=== PATIENT | male | born 1950 | race Caucasian/White ===

== ENCOUNTER 2025-04-28 08:25 | Observation (INO) ==
--- NOTE | 2025-04-28 08:56 | Emergency Department Note ---
Impression & Plan Diverticulitis of intestine with perforation, Abdominal pain ED Provider Note Provider: Prem Peraza MD CHIEF COMPLAINT: Mid abdominal pain HISTORY OF PRESENT ILLNESS: Patient is a 74-year-old gentleman history of atrial fibrillation on Coumadin, CAD without stents, hypertension presenting here today reporting over the last 2 days or so has been stressing some mid abdominal discomfort. Lives in [place] and here visiting family. Arrived yesterday. States symptoms started Friday after completing a normal hike for him that went without issue. Had a convenience store sandwich in the posterior mid abdominal discomfort. No nausea vomiting or diarrhea. Actually ports he has not had a bowel in approximately 2 days at this time. No fevers. No ration of the pain to the back. States if he takes deep breath or moves too much he gets a little worsening of the pain around his bellybutton but does not feel short of breath. States compliance with home medications. No trauma reported. No urinary issues reported. No history of abdominal surgeries. Does state he has small umbilical hernia for the last 85 years that soft and reducible. Does have a history of diverticulosis in the past. Did take a Vicodin he had last night to help with sleep that worked okay. PAST MEDICAL HISTORY: As noted above MEDICATIONS: Reviewed home medications with him at bedside, includes Coumadin & flecainide SOCIAL HISTORY: Lives in [place] PHYSICAL EXAM: GENERAL: alert and oriented in no acute distress on stretcher Head: normocephalic and atraumatic EYES: No injection, discharge or icterus. NECK: Trachea midline. ENT: Mucous membranes pink and moist. LUNGS: Airway patent. No retractions. Breath sounds clear HEART: Regular rate and rhythm. No chest wall tenderness ABDOMEN: Soft some mid periumbilical tenderness. There is a small just superior 1 cm umbilical hernia that is soft and easily reducible and nontender present. No significant flank or lower abdominal tenderness on exam. No guarding. SKIN: Acyanotic, warm, dry, with a few scattered bruises on the right upper arm noted. EXTREMITIES: Without swelling, tenderness or deformity NEUROLOGICAL: No focal deficits. No aphasia. No facial droop or slurred speech. Ambulatory. EK bpm sinus bradycardia with incomplete right bundle branch block. No acute ST segment elevation or depression with a QTc of 418. CONTINUOUS CARDIAC MONITORING: was ordered and showed a heart rate of 40s to 50s bpm in sinus bradycardia PDMP was checked without noted issue. Patient's laboratory studies and imaging reviewed. Differential includes Appendicitis, infections, diverticulitis, UTI, obstruction, mesenteric ischemia, aortic pathology, inflammatory bowel disease, renal colic, PUD, pancreatitis, biliary pathology, hernia, volvulus, constipation, as well as other pathologies. IMPRESSION/MEDICAL DECISION MAKING: Patient well-appearing in no distress. Some mid abdominal discomfort and tenderness but easily reproducible and soft hernia and I doubt this is the etiology of his symptoms. Basic blood work obtained including INR given his use of blood thinners. Doubt PE with this. No trauma history reported. Symptoms started before his travel. No fevers reported. No significant abdominal surgical history reported. Will obtain CT CT scan to look for further intra- abdominal pathology. Blood work here without significant anemia or thrombocytopenia. White blood cell count of 10.2 within normal limits. No significant acute electrolyte abnormalities creatinine 1.4. No transaminitis fairly lipase not hepatitis or pancreatitis. Troponin normal at 16. CT scan per radiology report shows acute sigmoid diverticulitis with contained microperforation with an air-fluid level in the sigmoid colon small developing abscess phlegmon that is not drainable. No evidence of bowel obstruction per report with an indeterminant left lower rectus sheath 7.9 cm structure. They question malformation versus hemorrhage less likely the patient is not having any significant pain in this region. Question of acute pancreatitis per imaging but lipase is normal is not having severe nausea vomiting or back pain. Seems less likely. Did reach out to general surgery to discuss his findings. Again lower suspicion for active extravasation or bleeding his hemoglobin is 14. Patient is anticoagulated but not in A-fib at this time. Discussed with general surgery they have concerns given his anticoagulated status and possible active extravasation and recommended transfer. They agreed with IV antibiotics for the diverticulitis. Discussed with the patient. He is not having significant flank or back pain. Patient with some medical background and after considering it states he did not wish to be transferred. Acknowledged that we do not have the resources here to treat any bleeding but felt that this was incidental. Do not highly disagree that likely this will not be a problem but explained to them concerns that if things were to worsen we have limited resources here to deal with it. Updated the surgery team will follow and reach out to the hospitalist team as the patient was agreeable to stay here for IV antibiotics. DIAGNOSIS: Perforated diverticulitis, mid abdominal pain DISPOSITION: Hospitalist will evaluate Patient was agreeable with this plan. Past Med/Surg History Problem List (Updated 04/28/25 @ 12:54 by Prem Peraza M.D.) Abdominal pain (Acute) Diverticulitis of intestine with perforation (Acute) Social History Smoking Status: Never smoker Preferred Language: Martiniquais Feels Safe at Home: Yes Allergies Allergies Allergy/AdvReac Type Severity Reaction Status Date / Time No Known Allergies Allergy Unverified 04/28/25 09:52 Home Meds Home Medications Medication Instructions Recorded Confirmed aspirin 81 mg tablet,delayed 81 mg PO DAILY 04/28/25 04/28/25 release famotidine 20 mg tablet 20 mg PO DAILY PRN reflux 04/28/25 04/28/25 flecainide 50 mg tablet 50 mg PO BID 04/28/25 04/28/25 ibuprofen-diphenhydramine citrate 2 cap PO HS PRN Sleep/Pain 04/28/25 04/28/25 200 mg-38 mg tablet (Advil PM) lisinopril 5 mg tablet 5 mg PO DAILY 04/28/25 04/28/25 nitroglycerin 0.4 mg sublingual 0.4 mg sublingual DIRECTED PRN 04/28/25 04/28/25 tablet Chest Pain psyllium husk 3.4 gram/5.4 gram 1 tbsp PO DAILY 04/28/25 04/28/25 oral powder (Metamucil) rosuvastatin 40 mg tablet 40 mg PO HS 04/28/25 04/28/25 warfarin 5 mg tablet See Rx Instructions .Route .COMPLEX 04/28/25 04/28/25 Results & Data (ED) Vital Signs Vital Signs - 24 hr 04/28/25 08:27 04/28/25 08:27 04/28/25 08:53 Temperature 36.6 C Temperature Source Temporal Artery Scan Pulse Rate 63 Pulse Rate [Apical] Respiratory Rate 18 18 Respiratory Effort / Characteristics Respiratory Depth Blood Pressure 97/67 L Blood Pressure [Right Arm] Blood Pressure Mean 77 Blood Pressure Mean [Right Arm] Blood Pressure Position [Right Arm] Pulse Oximetry 95 96 Oxygen Delivery Method Room Air Sepsis Recent Fever Within 48 Hours No Sepsis New/Unexplained Change in Mental Status N/A Sepsis Action Taken by Nursing No Action Required 04/28/25 08:56 04/28/25 10:00 04/28/25 11:00 Temperature Temperature Source Pulse Rate 54 L Pulse Rate [Apical] 43 L 48 L Respiratory Rate 19 16 Respiratory Effort / Characteristics Non-Labored Spontaneous Non-Labored Spontaneous Respiratory Depth Normal Normal Blood Pressure Blood Pressure [Right Arm] 114/73 130/68 Blood Pressure Mean Blood Pressure Mean [Right Arm] 86 88 Blood Pressure Position [Right Arm] Semi-fowlers Semi-fowlers Pulse Oximetry 96 99 Oxygen Delivery Method Room Air Room Air Sepsis Recent Fever Within 48 Hours Sepsis New/Unexplained Change in Mental Status Sepsis Action Taken by Nursing 04/28/25 12:54 04/28/25 13:00 Temperature Temperature Source Pulse Rate 57 L Pulse Rate [Apical] 56 L Respiratory Rate 16 Respiratory Effort / Characteristics Non-Labored Spontaneous Respiratory Depth Normal Blood Pressure Blood Pressure [Right Arm] 127/81 Blood Pressure Mean Blood Pressure Mean [Right Arm] 96 Blood Pressure Position [Right Arm] Semi-fowlers Pulse Oximetry 97 Oxygen Delivery Method Room Air Sepsis Recent Fever Within 48 Hours Sepsis New/Unexplained Change in Mental Status Sepsis Action Taken by Nursing Laboratory Data 04/28/25 08:50 04/28/25 08:50 Lab Results 04/28/25 04/28/25 04/28/25 Range/Units 08:50 08:57 11:16 WBC 10.22 (4.8-10.8) K/ul RBC 4.44 L (4.70-6.10) M/uL Hgb 14.1 (14.0-18.0) g/dl POC Hgb 13.9 L (14.0-18.0) g/dl Hct 40.7 L (42.0-52.0) % POC Hct 41 L (42-52) % MCV 91.7 (80.0-100.0) fL MCH 31.8 (25.0-34.0) pg MCHC 34.6 (32.0-36.0) g/dL RDW Std Deviation 44.7 (36.4-46.3) fL RDW Coeff of Shayla 13.3 (11.5-14.5) % Plt Count 143 (130-400) K/uL MPV 11.0 (9.4-12.4) fL Immature Gran % (Auto) 0.5 % Neut % (Auto) 81.3 % Lymph % (Auto) 9.7 % Boyle % (Auto) 7.7 % Eos % (Auto) 0.6 % Baso % (Auto) 0.2 % Neut # (Auto) 8.31 H (1.40-6.50) K/uL Lymph # (Auto) 0.99 L (1.20-3.40) K/uL Boyle # (Auto) 0.79 H (0.11-0.59) K/uL Eos # (Auto) 0.06 (0.00-0.50) K/uL Baso # (Auto) 0.02 (0.00-0.20) K/uL Immature Gran # (Auto) 0.05 (0.01-0.20) K/uL PT 32.7 H (9.0-12.0) Seconds INR 3.4 H (0.9-1.1) POC Sodium 137 (135-144) mmol/L Sodium 135 L (136-145) mmol/L POC Potassium 3.8 (3.3-5.0) mmol/L Potassium 3.8 (3.5-5.1) mmol/L POC Chloride 103 (101-112) mmol/L Chloride 105 (98-107) mmol/L Carbon Dioxide 24 (21-32) mmol/L POC Total CO2 22 L (24-31) mmol/L Anion Gap 6 (3-11) POC Anion Gap 17.0 (16-25) mmol/L POC BUN 20 H (7-18) mg/dl BUN 22 (6-23) mg/dl Creatinine 1.42 H (0.6-1.4) mg/dl POC Creatinine 1.5 H (0.6-1.3) mg/dl Est Cr Clr Drug Dosing 44.3 ml/min eGFR 51.21 BUN/Creatinine Ratio 15.5 (10-20) Glucose 110 H (70-99(Fasting)) mg/dl POC Glucose (other) 106 H (70-99) mg/dl Calcium 9.2 (8.6-10.3) mg/dl POC Ioniz Calcium Alicia 1.25 (1.12-1.32) mmol/l Total Bilirubin 3.8 H (0.2-1.0) mg/dl AST 25 (13-39) U/L ALT 26 (7-52) U/L Alkaline Phosphatase 59 (34-104) U/L Troponin I High Sens 16.3 (0-20) pg/ml Total Protein 6.4 (6.0-8.3) gm/dl Albumin 3.5 (3.4-5.0) gm/dl Globulin 2.9 (2.5-4.0) gm/dl Albumin/Globulin Ratio 1.2 (0.9-2) Lipase 20 (11-82) U/L Urine Color Yellow Urine Appearance Clear (Clear) Urine pH 5.5 (4.5-7.5) Ur Specific [place] > 1.045 H (1.000-1.030) Urine Protein 1+ H (Negative) Urine Glucose (UA) Negative (Negative) Urine Ketones Negative (Negative) Urine Blood 1+ H (Negative) Urine Nitrite Negative (Negative) Urine Bilirubin Negative (Negative) Urine Urobilinogen Negative (Negative) Ur Leukocyte Esterase Negative (Negative) Urine WBC (Auto) 0-5 (0-5) /hpf Urine RBC (Auto) 6-10 H (0-2) /hpf U Hyaline Cast (Auto) 0-2 (0-2) /lpf U Epithel Cells (Auto) 0-2 (0-2) /hpf Urine Bacteria (Auto) None Seen (None Seen) Urine Comment Administered Medications Discontinued Medications Piperacillin Sod/Tazobactam Sod (Zosyn) 4.5 gm in 100 mls @ 200 mls/hr IV NOW ONE; Protocol Stop: 04/28/25 11:10 Last Infusion: 04/28/25 12:06 Dose: Infused Documented By: Admin: 04/28/25 11:16 Dose: 200 mls/hr Documented By: MMF Ioversol (Optiray 320 100ml) 93 ml IV ONCE ONE Stop: 04/28/25 09:15 Last Admin: 04/28/25 09:14 Dose: 93 ml Documented By: [facility] Imaging Data Radiologist's Impression: Abdomen/Pelvis CT 04/28/25 08:[address] WITH IV CONTRAST CT DOSE: 1106.44 mGy.cm HISTORY: Acute mid abdominal pain for 2 days mid abd pain TECHNIQUE: Multiaxial CT images of the abdomen and pelvis were performed following the IV administration of 93 cc of Optiray, A dose lowering technique was utilized adhering to the principles of ALARA. COMPARISON STUDY: None. FINDINGS: Cardiomegaly with extensive coronary artery calcifications. Mild bibasilar atelectasis. Unremarkable spleen, and adrenal glands. Cholelithiasis without CT evidence of acute cholecystitis. Mild edema noted adjacent to the uncinate process pancreas, likely secondary to the mesenteric inflammation. Patent portal vein. No hydronephrosis. 4.6 and meter right renal cyst. Prostatomegaly. Decompressed urinary bladder with mild wall thickening. Atherosclerosis of the aorta. No lymphadenopathy. Small hiatal hernia. No small bowel obstruction. Trace pelvic ascites. Moderate rectal fecal retention. Extensive diverticulosis of the sigmoid. Acute proximal sigmoid diverticulitis. Air and fluid within the adjacent mesentery/upper sigmoid mesocolon is noted with a 2.6 and a focus on image 23 series 3. There is adjacent jejunal wall thickening which appears reactive. No drainable fluid collection. Normal appendix. There is a linear metallic density structure present within the cecum measuring approximately 2 cm in length on image 217 series 3. Small fat filled umbilical hernia with opening of approximately 1.8 cm. Mixed density extraperitoneal structure posterior to the left lower rectus sheath is noted on image 22 series 3 measuring 4.4 x 7.9 x 7.6 cm. This contains hyperdense central foci. No acute fracture. Grade 1 anterolisthesis L4 on L5, likely secondary to chronic facet arthrosis. IMPRESSION: 1. Acute sigmoid diverticulitis which contained microperforation. Air and fluid is noted within the sigmoid mesocolon with phlegmon/small developing abscess. No drainable collections are present at this time. 2. No bowel obstruction. 3. Indeterminate lobular extraperitoneal 7.9 cm structure/lesion posterior to the left lower rectus sheath demonstrates several foci of mixed attenuation which may represent soft tissue components, and/or active extravasation. Differential considerations include a complex venolymphatic malformation among other etiologies with a primary hemorrhage considered less likely. Follow-up recommended. 4. Equivocal findings of mild acute pancreatitis. Correlate with serum lipase. 5. 2.2 cm linear metallic density structure within the cecum suggestive of an ingested foreign body. ACT 112: Negative or not required by law. The above report was generated using voice recognition software. It may contain grammatical, syntax or spelling errors. Electronically signed by: Florencio Figueredo M.D. 04/28/2025 10:12 AM Discharge Plan Visit Data Chief Complaint: Abdominal Pain Stated Complaint: ABD PAIN AROUND [facility] ED Provider: Prem Peraza Discharge Problem: Diverticulitis of intestine with perforation, Abdominal pain Patient Disposition: Being Evaluated by Hospitalist Condition: Fair Forms Stand Alone Forms: My [facility] Prescriptions Prescriptions: No Action aspirin 81 mg Tablet,Delayed Release (Dr/Ec) 81 mg PO DAILY famotidine 20 mg Tablet 20 mg PO DAILY PRN (Reason: reflux) warfarin 5 mg tablet See Rx Instructions .ROUTE .COMPLEX Rx Instructions: Take 2.5mg on Mon/Fri and 5mg all other days flecainide 50 mg tablet 50 mg PO BID nitroglycerin 0.4 mg tablet, sublingual 0.4 mg sublingual DIRECTED PRN (Reason: Chest Pain) Rx Instructions: PLACE 1 TABLET UNDER TONGUE NEEDED FOR CHEST PAIN; MAY REPEAT EVERY 5 MINUTES FOR A TOTAL OF 3 DOSES IF NOT RESOLVED; CALL 911 lisinopril 5 mg tablet 5 mg PO DAILY rosuvastatin 40 mg tablet 40 mg PO HS Advil PM 200-38 mg Tablet 2 cap PO HS PRN (Reason: Sleep/Pain) Metamucil 3.4 gram/5.4 gram Powder 1 tbsp PO DAILY Rx Instructions: mix into at least 8 oz of water or juice before administering Referrals Referrals: PCP,NO [Primary Care Provider] - Discharge Problem: Diverticulitis of intestine with perforation Qualifiers: Diverticulitis site: large intestine Diverticulitis bleeding: without bleeding Qualified Code(s): K57.20 - Diverticulitis of large intestine with perforation and abscess without bleeding Abdominal pain Qualifiers: Abdominal location: periumbilical Qualified Code(s): R10.33 - Periumbilical pain
[2025-04-28 09:05] LABS: Basophils # (auto) 0.02 K/uL (0.00-0.20); Basophils % (auto) 0.2 %; Eosinophils # (auto) 0.06 K/uL (0.00-0.50); Eosinophils % (auto) 0.6 %; Hematocrit (blood only) 40.7 % (42.0-52.0); Hemoglobin 14.1 g/dl (14.0-18.0); Immature Granulocytes # (auto) 0.05 K/uL (0.01-0.20); Immature Granulocytes % (auto) 0.5 %; Lymphocytes # (auto) 0.99 K/uL (1.20-3.40); Lymphocytes % (auto) 9.7 %; Mean Corpuscular Hemoglobin 31.8 pg (25.0-34.0); Mean Corpuscular Hgb Conc 34.6 g/dL (32.0-36.0); Mean Corpuscular Volume 91.7 fL (80.0-100.0); Monocytes # (auto) 0.79 K/uL (0.11-0.59); Monocytes % (auto) 7.7 %; Neutrophils # (auto) 8.31 K/uL (1.40-6.50); Neutrophils % (auto) 81.3 %; Platelet Count 143 K/uL (130-400); RDW Coefficient of Variation 13.3 % (11.5-14.5); RDW Standard Deviation 44.7 fL (36.4-46.3); Red Blood Count 4.44 M/uL (4.70-6.10); White Blood Count 10.22 K/ul (4.8-10.8)
[2025-04-28] MEDS: OPTIRAY 320 100ml IV ONE (09:14)
[2025-04-28 09:23] LABS: Albumin Globulin Ratio 1.2 (0.9-2); BUN Creatinine Ratio 15.5 (10-20); Bilirubin,Total 3.8 mg/dl (0.2-1.0); Calcium 9.2 mg/dl (8.6-10.3); Creatinine Clr Calc Pharmacy 44.3 ml/min; Globulin 2.9 gm/dl (2.5-4.0); Potassium 3.8 mmol/L (3.5-5.1); Total Protein 6.4 gm/dl (6.0-8.3)
[2025-04-28 09:28] LABS: iSTAT Creatinine 1.5 mg/dl (0.6-1.3); iSTAT Hemoglobin 13.9 g/dl (14.0-18.0); iSTAT Ionized Calcium 1.25 mmol/l (1.12-1.32); iSTAT Potassium 3.8 mmol/L (3.3-5.0)
[2025-04-28 09:29] LABS: Troponin I High Sensitivity 16.3 pg/ml (0-20)
[2025-04-28 09:37] LABS: INR 3.4 (0.9-1.1); Prothrombin Time 32.7 Seconds (9.0-12.0)
--- NOTE | 2025-04-28 10:14 | CT Scan Report ---
ABDOMEN AND PELVIS CT WITH IV CONTRAST CT DOSE: 1106.44 mGy.cm HISTORY: Acute mid abdominal pain for 2 days mid abd pain TECHNIQUE: Multiaxial CT images of the abdomen and pelvis were performed following the IV administrat ion of 93 cc of Optiray, A dose lowering technique was utilized adhering to the principles of ALARA. COMPARISON STUDY: None. FINDINGS: Cardiomegaly with extensive coronary artery calcifications. Mild bibasilar atelectasis. Unr emarkable spleen, and adrenal glands. Cholelithiasis without CT evidence of acute cholecystitis. Mild edema noted adjacent to the uncinate process pancreas, likely secondary to the mesenteric inflammati on. Patent portal vein. No hydronephrosis. 4.6 and meter right renal cyst. Prostatomegaly. Decompressed urinary bladder with mild wall thickening. Atherosclerosis of the aorta. No lymphadenopathy. Small hiatal hernia. No small bowel obstruction. Trace pelvic ascites. Moderate rectal fecal retentio n. Extensive diverticulosis of the sigmoid. Acute proximal sigmoid diverticulitis. Air and fluid with in the adjacent mesentery/upper sigmoid mesocolon is noted with a 2.6 and a focus on image 23 series 3. There is adjacent jejunal wall thickening which appears reactive. No drainable fluid collection. N ormal appendix. There is a linear metallic density structure present within the cecum measuring appro ximately 2 cm in length on image 217 series 3. Small fat filled umbilical hernia with opening of appr oximately 1.8 cm. Mixed density extraperitoneal structure posterior to the left lower rectus sheath is noted on image 2 2 series 3 measuring 4.4 x 7.9 x 7.6 cm. This contains hyperdense central foci. No acute fracture. Gr steve 1 anterolisthesis L4 on L5, likely secondary to chronic facet arthrosis. IMPRESSION: 1. Acute sigmoid diverticulitis which contained microperforation. Air and fluid is noted within the s igmoid mesocolon with phlegmon/small developing abscess. No drainable collections are present at this time. 2. No bowel obstruction. 3. Indeterminate lobular extraperitoneal 7.9 cm structure/lesion posterior to the left lower rectus s hafsa demonstrates several foci of mixed attenuation which may represent soft tissue components, and/ or active extravasation. Differential considerations include a complex venolymphatic malformation ap ng other etiologies with a primary hemorrhage considered less likely. Follow-up recommended. 4. Equivocal findings of mild acute pancreatitis. Correlate with serum lipase. 5. 2.2 cm linear metallic density structure within the cecum suggestive of an ingested foreign body. ACT 112: Negative or not required by law. The above report was generated using voice recognition software. It may contain grammatical, syntax o r spelling errors. Electronically signed by: Florencio Figueredo M.D. 04/28/2025 10:12 AM
[2025-04-28] MEDS: PIPERACILLIN/TAZOBACTAM 4.5 GM/100 ML BAG IV ONE (11:16)
[2025-04-28 11:29] LABS: Appearance Urine Clear (Clear); Bacteria Urine Automated None Seen (None Seen); Bilirubin Urine Negative (Negative); Blood Urine 1+ (Negative); Cast Urine Automated 0-2 /lpf (0-2); Color Urine Yellow; Epithelial Cell Urine Auto 0-2 /hpf (0-2); Glucose Urine UA Negative (Negative); Ketones Urine Negative (Negative); Leukocyte Esterase Urine Negative (Negative); Nitrite Urine Negative (Negative); Protein Urine 1+ (Negative); Specific Gravity Urine > 1.045 (1.000-1.030); Urobilinogen Urine Negative (Negative); WBC Urine Automated 0-5 /hpf (0-5); pH Urine 5.5 (4.5-7.5)
--- NOTE | 2025-04-28 13:03 | History & Physical Report ---
Date of Service April 28, 2025 Assessment & Plan (1) Diverticulitis of intestine with perforation: (2) Atrial fibrillation: (3) Hypertension: (4) Hyperlipidemia: (5) GERD (gastroesophageal reflux disease): Plan 74 year old male with PMH significant for A fib on warfarin, hypertension, hyperlipidemia, and GERD who presented to the ED on 04/28/2025 with abdominal pain who is admitted for diverticulitis with microperforation. Diverticulitis with microperforation Patient presented with periumbilical abdominal pain x2 days CT abdomen revealed acute sigmoid diverticulitis with microperforation; air and fluid noted within sigmoid mesocolon with plegmon/small developing abscess that is not drainable; no bowel obstruction No leukocytosis, afebrile, vitals stable - no concern for sepsis at this time Received IV Zosyn in the ED Continue Zosyn q6hr NPO MIVF Pain control with IV tylenol and dilaudid PRN Surgery consulted: appreciate recs Abnormal CT findings -Indeterminate lobular extraperitoneal 7.9 cm structure/lesion posterior to the left lower rectus sheath demonstrates several foci of mixed attenuation which may represent soft tissue components, and/or active extravasation. Differential considerations include a complex venolymphatic malformation among other etiologies with a primary hemorrhage considered less likely. Follow-up recommended. --Surgery recommended transfer to tertiary center but patient refused; patient will follow up on this outpatient when he returns home to [place] -2.2 cm linear metallic density structure within the cecum suggestive of an ingested foreign body. --Patient believes he has metal clips from previous colonoscopies XIMENA Baseline creat 1.28-1.30 per patient Creat 1.4 here Continue IVF Avoid nephrotoxic meds Recheck BMP in am A fib Continue flecainide Baseline INR in high 2s per patient Hold warfarin given INR 3.4 and per surgery Recheck INR in am Hypertension Continue lisinopril Hyperlipidemia Continue rosuvastatin GERD Continue famotidine PRN DVT Prophylaxis: SCDs; holding warfarin due to supratherapeutic INR and possible procedure Code Status: FULL CODE - As per discussion at bedside with the patient. PCP: Francisco Kapadia of [place] Disposition: admit to [facility] tele Patient seen in collaboration with Dr Avila. Please see addendum. I spent a total of 75 minutes coordinating, documenting and providing care for this patient excluding time spent in the performance of separately billed services or time spent by another provider/QHP. Admission and Anticipated Discharge Date Admission Date: 04/28/2025 History of Present Illness Chief Complaint: abdominal pain Primary Care Provider: Francisco Kapadia ([place]) 74 year old male with PMH significant for A fib on warfarin, hypertension, hyperlipidemia, and GERD who presented to the ED on 04/28/2025 with abdominal pain. Patient reports he started with periumbilical abdominal pain two days ago. He states the pain is constant and aggravated by movement. He also notes two days of not having a bowel movement but he was able to move his bowels this morning. He denies associated nausea and vomiting. Notes that he has a history of diverticulitis. He took famotidine, ambien, and vicodin last night without any relief of his pain, which prompted him to seek evaluation this morning. Rates current pain 2-3/10. Denies chest pain, SOB, dysuria, weakness. He lives in [place] and is here visiting his daughter and granddaughter. He has a flight scheduled to return to [place] on Friday. Allergies Allergy/AdvReac Type Severity Reaction Status Date / Time No Known Allergies Allergy Unverified 04/28/25 09:52 Home Medications Medication Instructions Recorded Confirmed Type aspirin 81 mg tablet,delayed 81 mg PO DAILY 04/28/25 04/28/25 History release famotidine 20 mg tablet 20 mg PO DAILY PRN reflux 04/28/25 04/28/25 History flecainide 50 mg tablet 50 mg PO BID 04/28/25 04/28/25 History ibuprofen-diphenhydramine citrate 2 cap PO HS PRN Sleep/Pain 04/28/25 04/28/25 History 200 mg-38 mg tablet (Advil PM) lisinopril 5 mg tablet 5 mg PO DAILY 04/28/25 04/28/25 History nitroglycerin 0.4 mg sublingual 0.4 mg sublingual DIRECTED PRN 04/28/25 04/28/25 History tablet Chest Pain psyllium husk 3.4 gram/5.4 gram 1 tbsp PO DAILY 04/28/25 04/28/25 History oral powder (Metamucil) rosuvastatin 40 mg tablet 40 mg PO HS 04/28/25 04/28/25 History warfarin 5 mg tablet See Rx Instructions .Route .COMPLEX 04/28/25 04/28/25 History Past Med/Surg History Problem List (Updated 04/28/25 @ 15:39 by ELSA Castro) Abdominal pain (Acute) Diverticulitis of intestine with perforation (Acute) Medical History (Updated 04/28/25 @ 15:39 by ELSA Castro) GERD (gastroesophageal reflux disease) Hyperlipidemia Hypertension Atrial fibrillation Surgical History (Updated 04/28/25 @ 15:40 by ELSA Castro) History of tonsillectomy History of left shoulder replacement Family History (Updated 04/28/25 @ 15:40 by ELSA Castro) Brother Myocardial infarction Mother Heart disease Social History (Updated 04/28/25 @ 15:41 by ELSA Castro) Smoking Status: Never smoker Hx Alcohol Use: Yes Alcohol type: beer Alcohol Intake Frequency: 2-3 x/Week Hx Substance Use: No Preferred Language: Armenian Current Living Situation: Spouse current occupational status: retired other: retired anesthesiologist Feels Safe at Home: Yes Assistive Devices: None Review of Systems 2 Review of Systems: All systems reviewed & are unremarkable except as noted in HPI & below Physical Exam Physical Exam: General/Psych: WD/WN, sitting up in bed, NAD, conversing easily Head: normocephalic, atraumatic Eyes: normal inspection, PERRL, conjunctivae pink, anicteric sclerae ENT: external ear and nose normal, oropharynx normal Neck: normal visual inspection, trachea midline Respiratory: normal respiratory effort, lungs clear to auscultation, no wheeze/rales/rhonchi, no accessory muscle use Cardiovascular: regular rate and rhythm, no murmur/rub/gallop, no JVD Extremities: no cyanosis or clubbing, normal peripheral pulses, no BLE edema Abdomen/GI: normal bowel sounds, soft, no hepatosplenomegaly, tenderness in periumbilical region, umbilical hernia present Neurologic/MSK: A+Ox3, motor strength 5/5, moves all extremities Skin: no rashes, normal color, warm and dry Results & Data Results & Data Vital Signs (Past 12 Hours) Vital Signs Temp Pulse Pulse Resp BP BP Pulse Ox 04/28/25 12:54 57 L 04/28/25 11:00 48 L 16 130/68 99 04/28/25 10:00 43 L 19 114/73 96 04/28/25 08:56 54 L 04/28/25 08:53 96 04/28/25 08:27 18 04/28/25 08:27 36.6 C 63 18 97/67 L 95 O2 Del Method 04/28/25 12:54 04/28/25 11:00 Room Air 04/28/25 10:00 Room Air 04/28/25 08:56 04/28/25 08:53 Room Air 04/28/25 08:27 04/28/25 08:27 Laboratory Results Short CBC 04/28/25 Range/Units 08:50 WBC 10.22 (4.8-10.8) K/ul Hgb 14.1 (14.0-18.0) g/dl Hct 40.7 L (42.0-52.0) % Plt Count 143 (130-400) K/uL BMP 04/28/25 08:50 Sodium 135 L Potassium 3.8 Chloride 105 Carbon Dioxide 24 BUN 22 Creatinine 1.42 H Glucose 110 H Calcium 9.2 Liver Function 04/28/25 Range/Units 08:50 Total Bilirubin 3.8 H (0.2-1.0) mg/dl AST 25 (13-39) U/L ALT 26 (7-52) U/L Alkaline Phosphatase 59 (34-104) U/L Albumin 3.5 (3.4-5.0) gm/dl Urine 04/28/25 Range/Units 11:16 Urine Color Yellow Urine Appearance Clear (Clear) Urine pH 5.5 (4.5-7.5) Ur Specific [place] > 1.045 H (1.000-1.030) Urine Protein 1+ H (Negative) Urine Glucose (UA) Negative (Negative) I have independently reviewed and interpreted patient's admitting labs including CBC, CMP, PTT, PT/INR, lipase, troponin, UA. Diagnostic Findings Abdomen/Pelvis CT 04/28/25 08:[address] WITH IV CONTRAST CT DOSE: 1106.44 mGy.cm HISTORY: Acute mid abdominal pain for 2 days mid abd pain TECHNIQUE: Multiaxial CT images of the abdomen and pelvis were performed following the IV administration of 93 cc of Optiray, A dose lowering technique was utilized adhering to the principles of ALARA. COMPARISON STUDY: None. FINDINGS: Cardiomegaly with extensive coronary artery calcifications. Mild bibasilar atelectasis. Unremarkable spleen, and adrenal glands. Cholelithiasis without CT evidence of acute cholecystitis. Mild edema noted adjacent to the uncinate process pancreas, likely secondary to the mesenteric inflammation. Patent portal vein. No hydronephrosis. 4.6 and meter right renal cyst. Prostatomegaly. Decompressed urinary bladder with mild wall thickening. Atherosclerosis of the aorta. No lymphadenopathy. Small hiatal hernia. No small bowel obstruction. Trace pelvic ascites. Moderate rectal fecal retention. Extensive diverticulosis of the sigmoid. Acute proximal sigmoid diverticulitis. Air and fluid within the adjacent mesentery/upper sigmoid mesocolon is noted with a 2.6 and a focus on image 23 series 3. There is adjacent jejunal wall thickening which appears reactive. No drainable fluid collection. Normal appendix. There is a linear metallic density structure present within the cecum measuring approximately 2 cm in length on image 217 series 3. Small fat filled umbilical hernia with opening of approximately 1.8 cm. Mixed density extraperitoneal structure posterior to the left lower rectus sheath is noted on image 22 series 3 measuring 4.4 x 7.9 x 7.6 cm. This contains hyperdense central foci. No acute fracture. Grade 1 anterolisthesis L4 on L5, likely secondary to chronic facet arthrosis. IMPRESSION: 1. Acute sigmoid diverticulitis which contained microperforation. Air and fluid is noted within the sigmoid mesocolon with phlegmon/small developing abscess. No drainable collections are present at this time. 2. No bowel obstruction. 3. Indeterminate lobular extraperitoneal 7.9 cm structure/lesion posterior to the left lower rectus sheath demonstrates several foci of mixed attenuation which may represent soft tissue components, and/or active extravasation. Differential considerations include a complex venolymphatic malformation among other etiologies with a primary hemorrhage considered less likely. Follow-up recommended. 4. Equivocal findings of mild acute pancreatitis. Correlate with serum lipase. 5. 2.2 cm linear metallic density structure within the cecum suggestive of an ingested foreign body. ACT 112: Negative or not required by law. The above report was generated using voice recognition software. It may contain grammatical, syntax or spelling errors. Electronically signed by: Florencio Figueredo M.D. 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 Labs and imagings reviewed, hemoglobin 14.1, INR 3.4, other labs fairly closer to his baseline, creatinine 1.42 (baseline around 1.2 per patient]. Lipase WNL. Urinalysis negative. CT of abdomen pelvis concerning for diverticulitis/microperforation/developing abscess and also concerning for complex venolymphatic malformation versus hemorrhage. Since H&H is stable/no back pain, less likely hemorrhage. On exam: on room air, NAD, heart and lungs examination WNL, mild tenderness in periumbilical region. Rest of the exam as above. Sigmoid diverticulitis/microperforation/developing abscess: Zosyn, probiotic, IV fluid, n.p.o., general surgery consult. Abnormal CT of abdomen pelvis: Monitor H&H, repeat CTAP to follow-up on hemorrhage versus complex renal lymphatic malformation. Concern for foreign body in cecum, likely clip from his colonoscopy last September per discussion with the patient. Total time spent independently: 27 minutes. I have seen and examined the patient and have discussed the case with the provider above. I agree with the assessment and plan as stated. (1) Diverticulitis of intestine with perforation Diverticulitis bleeding: without bleeding Diverticulitis site: large intestine Qualified Code(s): K57.20 - Diverticulitis of large intestine with perforation and abscess without bleeding
[2025-04-28] MEDS ORDERED: HYDROmorphone INJ 0.5 MG/0.5 ML SYR IV PRN ×2 (15:03)
[2025-04-28] MEDS ORDERED: ONDANSETRON INJ 2 MG/ML 2 ML VIAL IV PRN (15:03)
[2025-04-28] MEDS ORDERED: ZOLPIDEM TARTRATE 5 MG TAB PO PRN (15:03)
[2025-04-28] MEDS ORDERED: FAMOTIDINE 20 MG TAB PO PRN (15:03)
[2025-04-28] MEDS ORDERED: ACETAMINOPHEN 1,000 MG/100 ML VIAL IV PRN (15:03)
--- NOTE | 2025-04-28 15:06 | Surgery Consultation ---
Date of Consultation April 28, 2025 Assessment & Plan (1) Diverticulitis of intestine with perforation: This is a 74yM with a PMH of afib on coumadin, HTN, HLD, GERD who is from [place] in town visiting family who presents to the [facility] ED on 04/28/25 with complaints of abdominal pain. He reports it started about 2 days ago, located about the mid-abdomen. Workup included a CT a/p that revealed findings of acute sigmoid diverticulitis which contained microperforation with a small phlegm on/developing abscess not amenable to drainage at this time. Interestingly it also showed an indeterminate lobular extraperitoneal 7.9 cm structure/lesion posterior to the left lower rectus sheath demonstrates several foci of mixed attenuation which may represent soft tissue components, and/or active extravasation. Differential considerations include a complex venolymphatic malformation among other etiologies with a primary hemorrhage considered less likely. In addition possible mild acute pancreatitis and a 2.2 linear structure in the cecum. Patient states he had had diverticulitis about 10 years ago where the pain was primarily in the LLQ. He has undergone colonoscopy multiple times and believes the finding in the cecum is related to clips GI used. Patient has no fevers/chills, nausea/vomiting. Has known umbilical hernia. In the ER patient's labs show a WBC 10, hgb 13.9, INR 3.4, Cr 1.4. His vital signs are stable with HRs in the 50's and last BP 127/81. On exam patient is awake/alert and in no distress resting in the stretcher comfortably. His abdomen is soft with mild discomfort about the mid abdomen. Upon initial call by the ER his CT scan revealed findings of a indeterminant structured in the L lower rectus sheath as above and cannot rule out active extravasation vs soft tissue components. Our initial recommendations were to transfer the patient given this finding in addition to being anticoagulated for evaluation at a tertiary center where they have more robust IR capabilities and vascular availability. ER discussed this with the patient who after deliberating refused transfer for this finding. Given this in addition to concern for perforated diverticulitis the patient would benefit from admission for IV abx and monitoring. The patient clinically appears stable with a stable Hbg and vital signs and does not have a surgical abdomen. He is aware that we do not have the full capabilities to treat him should there be concern for active bleeding that requires urgent intervention. Therefore he will be admitted and we will follow along while in house. From a diverticulitis standpoint we recommend IV abx, IVF and he may have some ice/chips. Would hold coumadin in the event any procedures need to be performed. The patient does have a flight to [place] this friday. Once he returns to his home state he may follow up with his local doctors and likely coordinate an outpatient CT scan in about 3 months time to check on this indeterminant structure founded on CT scan. We will follow along while patient is here. Will place order to have patient's CD burned to take home with him. History of Present Illness Attending Physician: Clara Avila MD History of Present Illness This is a 74yM with a PMH of afib on coumadin, HTN, HLD, GERD who is from [place] in town visiting family who presents to the [facility] ED on 04/28/25 with complaints of abdominal pain. He reports it started about 2 days ago. It is mid abdomen in location. . Due to the symptoms he came to our ER for further evaluation. Workup included a CT a/p that revealed findings of acute sigmoid diverticulitis which contained microperforation with a small phlegmon/developing abscess not amenable to drainage at this time. Interestingly it also showed an indeterminate lobular extraperitoneal 7.9 cm structure/lesion posterior to the left lower rectus sheath demonstrates several foci of mixed attenuation which may represent soft tissue components, and/or active extravasation. Differential considerations include a complex venolymphatic malformation among other etiologies with a primary hemorrhage considered less likely. In addition possible mild acute pancreatitis and a 2.2 linear structure in the cecum. Patient states he had had diverticulitis about 10 years ago where the pain was primarily in the LLQ. He has undergone colonoscopy multiple times and believes the finding in the cecum is related to clips GI used. Patient has no fevers/chills, nausea/vomiting. Has known umbilical hernia. On our interview that patient currently rates his pain at a 2/10 at rest, slightly higher with movement Allergies Allergy/AdvReac Type Severity Reaction Status Date / Time No Known Allergies Allergy Unverified 04/28/25 09:52 Home Medications Medication Instructions Recorded Confirmed Type aspirin 81 mg tablet,delayed 81 mg PO DAILY 04/28/25 04/28/25 History release famotidine 20 mg tablet 20 mg PO DAILY PRN reflux 04/28/25 04/28/25 History flecainide 50 mg tablet 50 mg PO BID 04/28/25 04/28/25 History ibuprofen-diphenhydramine citrate 2 cap PO HS PRN Sleep/Pain 04/28/25 04/28/25 History 200 mg-38 mg tablet (Advil PM) lisinopril 5 mg tablet 5 mg PO DAILY 04/28/25 04/28/25 History nitroglycerin 0.4 mg sublingual 0.4 mg sublingual DIRECTED PRN 04/28/25 04/28/25 History tablet Chest Pain psyllium husk 3.4 gram/5.4 gram 1 tbsp PO DAILY 04/28/25 04/28/25 History oral powder (Metamucil) rosuvastatin 40 mg tablet 40 mg PO HS 04/28/25 04/28/25 History warfarin 5 mg tablet See Rx Instructions .Route .COMPLEX 04/28/25 04/28/25 History Patient History Medical History (Updated 04/28/25 @ 15:39 by ELSA Castro) GERD (gastroesophageal reflux disease) Hyperlipidemia Hypertension Atrial fibrillation Surgical History (Updated 04/28/25 @ 15:40 by ELSA Castro) History of tonsillectomy History of left shoulder replacement Family History (Updated 04/28/25 @ 15:40 by ELSA Castro) Brother Myocardial infarction Mother Heart disease Social History (Updated 04/28/25 @ 15:41 by ELSA Castro) Smoking Status: Never smoker Hx Alcohol Use: Yes Alcohol type: beer Alcohol Intake Frequency: 2-3 x/Week Hx Substance Use: No Preferred Language: Slovenian Supervisor Hydrochloric Area Required: No Beliefs That Will Affect Care: None Current Living Situation: Spouse current occupational status: retired other: retired anesthesiologist Feels Safe at Home: Yes Safety Concerns: Feels Safe At This Time Assistive Devices: None Review of Systems Constitutional: no fever and no chills Respiratory: no dyspnea Cardiovascular: no chest pain Gastrointestinal: + abdominal pain (mid abdomen); no nause a and no vomiting Physical Exam Physical Exam: awake, alert, no distress Constitutional: well developed and well nourished; no acute distress Respiratory: normal respiratory effort Gastrointestinal (Abdomen): Inspection/Auscultation: abdomen not distended Percussion/Palpation: + abdomen tender (mild discomfort around mid abdomen ) and abdomen soft; no guarding + umbilical hernia Results & Data Vital Signs (Past 12 Hours) Vital Signs Temp Pulse Pulse Resp BP BP Pulse Ox 04/28/25 13:00 56 L 16 127/81 97 04/28/25 12:54 57 L 04/28/25 11:00 48 L 16 130/68 99 04/28/25 10:00 43 L 19 114/73 96 04/28/25 08:56 54 L 04/28/25 08:53 96 04/28/25 08:27 18 04/28/25 08:27 97.9 F 63 18 97/67 L 95 O2 Del Method 04/28/25 13:00 Room Air 04/28/25 12:54 04/28/25 11:00 Room Air 04/28/25 10:00 Room Air 04/28/25 08:56 04/28/25 08:53 Room Air 04/28/25 08:27 04/28/25 08:27 Diagnostic Findings ABDOMEN AND PELVIS CT WITH IV CONTRAST CT DOSE: 1106.44 mGy.cm HISTORY: Acute mid abdominal pain for 2 days mid abd pain TECHNIQUE: Multiaxial CT images of the abdomen and pelvis were performed following the IV administration of 93 cc of Optiray, A dose lowering technique was utilized adhering to the principles of ALARA. COMPARISON STUDY: None. FINDINGS: Cardiomegaly with extensive coronary artery calcifications. Mild bibasilar atelectasis. Unremarkable spleen, and adrenal glands. Cholelithiasis without CT evidence of acute cholecystitis. Mild edema noted adjacent to the uncinate process pancreas, likely secondary to the mesenteric inflammation. Patent portal vein. No hydronephrosis. 4.6 and meter right renal cyst. Prostatomegaly. Decompressed urinary bladder with mild wall thickening. Atherosclerosis of the aorta. No lymphadenopathy. Small hiatal hernia. No small bowel obstruction. Trace pelvic ascites. Moderate rectal fecal retention. Extensive diverticulosis of the sigmoid. Acute proximal sigmoid diverticulitis. Air and fluid within the adjacent mesentery/upper sigmoid mesocolon is noted with a 2.6 and a focus on image 23 series 3. There is adjacent jejunal wall thickening which appears reactive. No drainable fluid collection. Normal appendix. There is a linear metallic density structure present within the cecum measuring approximately 2 cm in length on image 217 series 3. Small fat filled umbilical hernia with opening of approximately 1.8 cm. Mixed density extraperitoneal structure posterior to the left lower rectus sheath is noted on image 22 series 3 measuring 4.4 x 7.9 x 7.6 cm. This contains hyperdense central foci. No acute fracture. Grade 1 anterolisthesis L4 on L5, likely secondary to chronic facet arthrosis. IMPRESSION: 1. Acute sigmoid diverticulitis which contained microperforation. Air and fluid is noted within the sigmoid mesocolon with phlegmon/small developing abscess. No drainable collections are present at this time. 2. No bowel obstruction. 3. Indeterminate lobular extraperitoneal 7.9 cm structure/lesion posterior to the left lower rectus sheath demonstrates several foci of mixed attenuation which may represent soft tissue components, and/or active extravasation. Differential considerations include a complex venolymphatic malformation among other etiologies with a primary hemorrhage considered less likely. Follow-up recommended. 4. Equivocal findings of mild acute pancreatitis. Correlate with serum lipase. 5. 2.2 cm linear metallic density structure within the cecum suggestive of an ingested foreign body. ACT 112: Negative or not required by law. The above report was generated using voice recognition software. It may contain grammatical, syntax or spelling errors. Electronically signed by: Florencio Figuerdeo M.D. 04/28/2025 10:12 AM PG Care Time/CCT Total # of Minutes Spent Total Time Spent with Patient: Total time spent is greater than 50% in coordination of care (as documented) at patient's floor/unit and/or counseling patient: Coding Level of Care Code 78740 INT INP/OBS CARE MIN Diagnoses Diverticulitis of intestine with perforation K57.20 Diverticulitis bleeding: without bleeding Diverticulitis site: large intestine (1) Diverticulitis of intestine with perforation Diverticulitis bleeding: without bleeding Diverticulitis site: large intestine Qualified Code(s): K57.20 - Diverticulitis of large intestine with perforation and abscess without bleeding
[2025-04-28] MEDS: SODIUM CHLORIDE 0.9% 1,000 ML IV SCH (15:14)
--- NOTE | 2025-04-28 15:51 | Electrocardiogram Report ---
Test Reason : Blood Pressure : */* mmHG Vent. Rate : 58 BPM Atrial Rate : 58 BPM P-R Int : 140 ms QRS Dur : 92 ms QT Int : 426 ms P-R-T Axes : -22 1 38 degrees QTcB Int : 418 ms Sinus bradycardia Incomplete right bundle branch block Inferior infarct , age undetermined Abnormal ECG No previous ECGs available Confirmed by Jacob Montes De Oca ([id number]) on 04/28/2025 3:51:23 PM Referred By: REFERRED SELF Confirmed By: Jacob Montes De Oca
[2025-04-28] MEDS: PIPERACILLIN/TAZOBACTAM 4.5 GM/100 ML BAG IV SCH (16:44)
[2025-04-28] MEDS: FLECAINIDE ACETATE 100 MG TABLET PO SCH (20:07)
[2025-04-28] MEDS ORDERED: HYDROcodone/ACETAMINOPHEN 10/325 TAB PO PRN (20:37)
[2025-04-28] MEDS: ROSUVASTATIN CALCIUM 20 MG TAB PO SCH (22:15)
[2025-04-29 07:44] LABS: Hematocrit (blood only) 36.9 % (42.0-52.0); Hemoglobin 12.6 g/dl (14.0-18.0); Mean Corpuscular Hemoglobin 31.9 pg (25.0-34.0); Mean Corpuscular Hgb Conc 34.1 g/dL (32.0-36.0); Mean Corpuscular Volume 93.4 fL (80.0-100.0); Mean Platelet Volume 11.8 fL (9.4-12.4); Platelet Count 117 K/uL (130-400); RDW Coefficient of Variation 13.2 % (11.5-14.5); RDW Standard Deviation 44.9 fL (36.4-46.3); Red Blood Count 3.95 M/uL (4.70-6.10); White Blood Count 7.09 K/ul (4.8-10.8)
[2025-04-29 08:04] LABS: BUN Creatinine Ratio 14.1 (10-20); Calcium 8.1 mg/dl (8.6-10.3); Creatinine Clr Calc Pharmacy 49.1 ml/min; Potassium 3.5 mmol/L (3.5-5.1)
[2025-04-29] MEDS: lisinopril 5 MG TAB PO SCH (08:05)
[2025-04-29] MEDS: ASPIRIN 81 MG ECTAB PO SCH (08:05)
[2025-04-29 08:13] LABS: INR 2.7 (0.9-1.1); Prothrombin Time 27.2 Seconds (9.0-12.0)
--- NOTE | 2025-04-29 09:12 | Surgery Progress Note ---
Date of Service April 29, 2025 Assessment & Plan (1) Diverticulitis of intestine with perforation: Plan: Doing well clinically. WBC normal he is afebrile. Meets criteria for outpatient treatment. Okay from my standpoint for discharge. Will initiate clear liquids. He does need to follow-up with his physicians in [place] regarding the rectus mass/abnormality and he is fully aware of that. Dr. Arias on-call for the weekend if there is any concerns or questions Admission and Anticipated Discharge Date Admission Date: April 28, 2025 Subjective Patient seen. Feeling better already. Minimal discomfort. No fevers. No nausea Physical Exam Constitutional: WD/WN, vitals as above no acute distress and not ill appearing Eyes: PERRL, conjunctivae normal, anicteric sclerae EOM intact bilaterally ENMT: external ear and nose normal, oropharynx normal Ears: no hearing impairment Neck: trachea midline, no thyromegaly Respiratory: normal respiratory effort; no respiratory distress and does not use accessory muscles Cardiovascular: Rate/Rhythm: regular rate and regular rhythm Gastrointestinal (Abdomen): Soft. Minimal tenderness. Improved from yesterday. No peritoneal signs Skin: no rashes, warm and dry Psychiatric: Orientation: alert, oriented x 3 and cooperative Results & Data Vital Signs (Past 12 Hours) Vital Signs Temp Pulse Pulse Pulse Resp BP Pulse Ox 04/29/25 07:53 36.7 C 58 L 18 114/61 97 04/29/25 03:50 36.6 C 68 18 142/64 H 95 04/28/25 23:55 37.0 C 49 L 18 115/64 98 04/28/25 21:44 46 L O2 Del Method 04/29/25 07:53 Room Air 04/29/25 03:50 Room Air 04/28/25 23:55 Room Air 04/28/25 21:44 PG Care Time/CCT Total # of Minutes Spent Total Time Spent with Patient: Total time spent is greater than 50% in coordination of care (as documented) at patient's floor/unit and/or counseling patient: Coding Level of Care Code 87013 SUB INP/OBS CARE 11/27MIN Diagnoses Diverticulitis of intestine with perforation K57.20 Diverticulitis bleeding: without bleeding Diverticulitis site: large intestine (1) Diverticulitis of intestine with perforation Diverticulitis bleeding: without bleeding Diverticulitis site: large intestine Qualified Code(s): K57.20 - Diverticulitis of large intestine with perforation and abscess without bleeding
[2025-04-29] MEDS ORDERED: D5W AND 1/2NSS + 20MEQ KCL 20 MEQ/1,000 ML BAG IV SCH (10:15)
[2025-04-29 11:17] VITALS: BP 136/74; RESP 19; TEMP 97.7; O2SAT 96
--- NOTE | 2025-04-29 13:17 | Hospitalist Progress Note ---
Date of Service April 29, 2025 Assessment & Plan (1) Diverticulitis of intestine with perforation: (2) Atrial fibrillation: (3) Hypertension: (4) Hyperlipidemia: (5) GERD (gastroesophageal reflux disease): Plan 74 year old male with PMH significant for A fib on warfarin, hypertension, hyperlipidemia, and GERD who presented to the ED on 04/28/2025 with abdominal pain who is admitted for diverticulitis with microperforation. Diverticulitis with microperforation Patient presented with periumbilical abdominal pain x2 days --CT abdomen revealed acute sigmoid diverticulitis with microperforation; air and fluid noted within sigmoid mesocolon with plegmon/small developing abscess that is not drainable; no bowel obstruction No leukocytosis, afebrile, vitals stable - no concern for sepsis at this time --Tolerated liquid diet --Continue IV Zosyn>> transition to Augmentin to complete 2-week course Appreciate surgery input: Okay to discharge on oral antibiotics if tolerates diet Advised patient to follow-up with his colorectal surgeon in [place] as soon as possible Received IV fluids Abnormal CT findings -Indeterminate lobular extraperitoneal 7.9 cm structure/lesion posterior to the left lower rectus sheath demonstrates several foci of mixed attenuation which may represent soft tissue components, and/or active extravasation. Differential considerations include a complex venolymphatic malformation among other etiologies with a primary hemorrhage considered less likely. Follow-up recommended. --Surgery recommended transfer to tertiary center but patient refused; patient will follow up on this outpatient when he returns home to [place] -2.2 cm linear metallic density structure within the cecum suggestive of an ingested foreign body. --Patient believes he has metal clips from previous colonoscopies -- Patient is advised to follow-up with his colorectal surgeon on discharge. He understands and agrees with the plan XIMENA Baseline creat 1.28-1.30 per patient Creat 1.4>1.2 Received IV fluids Avoid nephrotoxic meds Monitor renal function A fib Sinus bradycardia Continue flecainide INR therapeutic On Coumadin for anticoagulation Bradycardia likely secondary to flecainide Asymptomatic May need follow-up with his program paraprofessional on discharge Hypertension Continue lisinopril Blood pressure stable Hyperlipidemia Continue rosuvastatin GERD Continue famotidine PRN DVT Px: SCDs, INR therapeutic Code Status: Full Code PCP: Francisco Kapadia of [place] Disposition: Home Admission and Anticipated Discharge Date Admission Date: April 28, 2025 Subjective Patient is seen and examined at bedside States having abdominal discomfort this morning which is much improved when compared to time of admission Tolerated liquid diet today Discussed with surgery today Denies any nausea, vomiting, chest pain, dyspnea, diarrhea, dizziness Sinus bradycardia on monitor Eager to get discharged Review of Systems Review of Systems: All systems reviewed & are unremarkable except as noted in Subjective Physical Exam Physical Exam: Physical Exam: Vitals signs as noted above General Appearance:Moderately built and nourished, no apparent distress Head: normocephalic, Atraumatic Eyes: normal inspection, EOMI Neck: supple, Trachea midline Respiratory/Chest: Normal breath sounds, CTA, No accessory muscle use Cardiovascular: S1, S2, No murmur, bradycardia Abdomen/GI:Soft, Non tender, Bowel sounds present Extremities/Musculoskeletal:normal inspection, no edema Neurologic/Psych:AAOX3, grossly no focal neurological deficits Skin: normal color, warm Results & Data Results & Data Vital Signs (Past 12 Hours) Vital Signs Temp Pulse Pulse Pulse Resp BP Pulse Ox 04/29/25 11:16 36.5 C 41 L 19 136/74 96 04/29/25 07:53 36.7 C 58 L 18 114/61 97 04/29/25 05:37 45 L 04/29/25 03:50 36.6 C 68 18 142/64 H 95 O2 Del Method 04/29/25 11:16 Room Air 04/29/25 07:53 Room Air 04/29/25 05:37 04/29/25 03:50 Room Air Laboratory Results Short CBC 04/29/25 Range/Units 06:49 WBC 7.09 (4.8-10.8) K/ul Hgb 12.6 L (14.0-18.0) g/dl Hct 36.9 L (42.0-52.0) % Plt Count 117 L (130-400) K/uL BMP 04/29/25 06:49 Sodium 137 Potassium 3.5 Chloride 107 Carbon Dioxide 24 BUN 18 Creatinine 1.28 Glucose 78 Calcium 8.1 L (1) Diverticulitis of intestine with perforation Diverticulitis bleeding: without bleeding Diverticulitis site: large intestine Qualified Code(s): K57.20 - Diverticulitis of large intestine with perforation and abscess without bleeding
--- NOTE | 2025-04-29 13:38 | Communication Note ---
Date of Service: April 29, 2025 By CMS guidelines, a determination that the admission or continued stay is not medically necessary has been made by a member of the UR committee and a physi aretha for this hospital stay, therefore a Code 44 will be completed and the Inpatient admission will be changed to outpatient.
--- NOTE | 2025-04-29 13:40 | Discharge Summary ---
Date of Service April 29, 2025 Admission HPI Per Admitting Provider 74 year old male with PMH significant for A fib on warfarin, hypertension, hyperlipidemia, and GERD who presented to the ED on 04/28/2025 with abdominal pain. Patient reports he started with periumbilical abdominal pain two days ago. He states the pain is constant and aggravated by movement. He also notes two days of not having a bowel movement but he was able to move his bowels this morning. He denies associated nausea and vomiting. Notes that he has a history of diverticulitis. He took famotidine, ambien, and vicodin last night without any relief of his pain, which prompted him to seek evaluation this morning. R ates current pain 2-01/10. Denies chest pain, SOB, dysuria, weakness. He lives in [place] and is here visiting his daughter and granddaughter. He has a flight scheduled to return to [place] on Friday. Admission Exam Per Admitting Provider General/Psych: WD/WN, sitting up in bed, NAD, conversing easily Head: normocephalic, atraumatic Eyes: normal inspection, PERRL, conjunctivae pink, anicteric sclerae ENT: external ear and nose normal, oropharynx normal Neck: normal visual inspection, trachea midline Respiratory: normal respiratory effort, lungs clear to auscultation, no wheeze/rales/rhonchi, no accessory muscle use Cardiovascular: regular rate and rhythm, no murmur/rub/gallop, no JVD Extremities: no cyanosis or clubbing, normal peripheral pulses, no BLE edema Abdomen/GI: normal bowel sounds, soft, no hepatosplenomegaly, tenderness in periumbilical region, umbilical hernia present Neurologic/MSK: A+Ox3, motor strength 5/5, moves all extremities Skin: no rashes, normal color, warm and dry Principal Diagnosis Diverticulitis with microperforation Abnormal CT abdomen Acute kidney injury Sinus bradycardia Discharge Data Allergies Allergy/AdvReac Type Severity Reaction Status Date / Time No Known Allergies Allergy Unverified 04/28/25 09:52 Consultations 04/28/25 10:51 Consult General Surgery Routine 04/28/25 13:06 ED Decision to Admit Stat 04/28/25 15:06 Burn CD for patient Routine Procedures Performed Laboratory Results WBC 7.09 K/ul (4.8-10.8) 04/29/25 06:49 RBC 3.95 M/uL (4.70-6.10) L 04/29/25 06:49 Hgb 12.6 g/dl (14.0-18.0) L 04/29/25 06:49 POC Hgb 13.9 g/dl (14.0-18.0) L 04/28/25 08:57 Hct 36.9 % (42.0-52.0) L 04/29/25 06:49 POC Hct 41 % (42-52) L 04/28/25 08:57 MCV 93.4 fL (80.0-100.0) 04/29/25 06:49 MCH 31.9 pg (25.0-34.0) 04/29/25 06:49 MCHC 34.1 g/dL (32.0-36.0) 04/29/25 06:49 RDW Std Deviation 44.9 fL (36.4-46.3) 04/29/25 06:49 RDW Coeff of Shayla 13.2 % (11.5-14.5) 04/29/25 06:49 Plt Count 117 K/uL (130-400) L 04/29/25 06:49 MPV 11.8 fL (9.4-12.4) 04/29/25 06:49 Immature Gran % (Auto) 0.5 % 04/28/25 08:50 Neut % (Auto) 81.3 % 04/28/25 08:50 Lymph % (Auto) 9.7 % 04/28/25 08:50 [place] % (Auto) 7.7 % 04/28/25 08:50 Eos % (Auto) 0.6 % 04/28/25 08:50 Baso % (Auto) 0.2 % 04/28/25 08:50 Neut # (Auto) 8.31 K/uL (1.40-6.50) H 04/28/25 08:50 Lymph # (Auto) 0.99 K/uL (1.20-3.40) L 04/28/25 08:50 [place] # (Auto) 0.79 K/uL (0.11-0.59) H 04/28/25 08:50 Eos # (Auto) 0.06 K/uL (0.00-0.50) 04/28/25 08:50 Baso # (Auto) 0.02 K/uL (0.00-0.20) 04/28/25 08:50 Immature Gran # (Auto) 0.05 K/uL (0.01-0.20) 04/28/25 08:50 PT 27.2 Seconds (9.0-12.0) H 04/29/25 06:49 INR 2.7 (0.9-1.1) H 04/29/25 06:49 POC Sodium 137 mmol/L (135-144) 04/28/25 08:57 Sodium 137 mmol/L (136-145) 04/29/25 06:49 POC Potassium 3.8 mmol/L (3.3-5.0) 04/28/25 08:57 Potassium 3.5 mmol/L (3.5-5.1) 04/29/25 06:49 POC Chloride 103 mmol/L (101-112) 04/28/25 08:57 Chloride 107 mmol/L (98-107) 04/29/25 06:49 Carbon Dioxide 24 mmol/L (21-32) 04/29/25 06:49 POC Total CO2 22 mmol/L (24-31) L 04/28/25 08:57 Anion Gap 6 (3-11) 04/29/25 06:49 POC Anion Gap 17.0 mmol/L (16-25) 04/28/25 08:57 POC BUN 20 mg/dl (7-18) H 04/28/25 08:57 BUN 18 mg/dl (6-23) 04/29/25 06:49 Creatinine 1.28 mg/dl (0.6-1.4) 04/29/25 06:49 POC Creatinine 1.5 mg/dl (0.6-1.3) H 04/28/25 08:57 Est Cr Clr Drug Dosing 49.1 ml/min 04/29/25 06:49 eGFR 58.00 04/29/25 06:49 BUN/Creatinine Ratio 14.1 (10-20) 04/29/25 06:49 Glucose 78 mg/dl (70-99(Fasting)) 04/29/25 06:49 POC Glucose (other) 106 mg/dl (70-99) H 04/28/25 08:57 Calcium 8.1 mg/dl (8.6-10.3) L 04/29/25 06:49 POC Ioniz Calcium Alicia 1.25 mmol/l (1.12-1.32) 04/28/25 08:57 Total Bilirubin 3.8 mg/dl (0.2-1.0) H 04/28/25 08:50 AST 25 U/L (13-39) 04/28/25 08:50 ALT 26 U/L (7-52) 04/28/25 08:50 Alkaline Phosphatase 59 U/L (34-104) 04/28/25 08:50 Troponin I High Sens 16.3 pg/ml (0-20) 04/28/25 08:50 Total Protein 6.4 gm/dl (6.0-8.3) 04/28/25 08:50 Albumin 3.5 gm/dl (3.4-5.0) 04/28/25 08:50 Globulin 2.9 gm/dl (2.5-4.0) 04/28/25 08:50 Albumin/Globulin Ratio 1.2 (0.9-2) 04/28/25 08:50 Lipase 20 U/L (11-82) 04/28/25 08:50 Urine Color Yellow 04/28/25 11:16 Urine Appearance Clear (Clear) 04/28/25 11:16 Urine pH 5.5 (4.5-7.5) 04/28/25 11:16 Ur Specific [place] > 1.045 (1.000-1.030) H 04/28/25 11:16 Urine Protein 1+ (Negative) H 04/28/25 11:16 Urine Glucose (UA) Negative (Negative) 04/28/25 11:16 Urine Ketones Negative (Negative) 04/28/25 11:16 Urine Blood 1+ (Negative) H 04/28/25 11:16 Urine Nitrite Negative (Negative) 04/28/25 11:16 Urine Bilirubin Negative (Negative) 04/28/25 11:16 Urine Urobilinogen Negative (Negative) 04/28/25 11:16 Ur Leukocyte Esterase Negative (Negative) 04/28/25 11:16 Urine WBC (Auto) 0-5 /hpf (0-5) 04/28/25 11:16 Urine RBC (Auto) 6-10 /hpf (0-2) H 04/28/25 11:16 U Hyaline Cast (Auto) 0-2 /lpf (0-2) 04/28/25 11:16 U Epithel Cells (Auto) 0-2 /hpf (0-2) 04/28/25 11:16 Urine Bacteria (Auto) None Seen (None Seen) 04/28/25 11:16 Urine Comment 04/28/25 11:16 Impressions Abdomen/Pelvis CT 04/28/25 08:[address] WITH IV CONTRAST CT DOSE: 1106.44 mGy.cm HISTORY: Acute mid abdominal pain for 2 days mid abd pain TECHNIQUE: Multiaxial CT images of the abdomen and pelvis were performed following the IV administration of 93 cc of Optiray, A dose lowering technique was utilized adhering to the principles of ALARA. COMPARISON STUDY: None. FINDINGS: Cardiomegaly with extensive coronary artery calcifications. Mild bibasilar atelectasis. Unremarkable spleen, and adrenal glands. Cholelithiasis without CT evidence of acute cholecystitis. Mild edema noted adjacent to the uncinate process pancreas, likely secondary to the mesenteric inflammation. Patent portal vein. No hydronephrosis. 4.6 and meter right renal cyst. Prostatomegaly. Decompressed urinary bladder with mild wall thickening. Atherosclerosis of the aorta. No lymphadenopathy. Small hiatal hernia. No small bowel obstruction. Trace pelvic ascites. Moderate rectal fecal retention. Extensive diverticulosis of the sigmoid. Acute proximal sigmoid diverticulitis. Air and fluid within the adjacent mesentery/upper sigmoid mesocolon is noted with a 2.6 and a focus on image 23 series 3. There is adjacent jejunal wall thickening which appears reactive. No drainable fluid collection. Normal appendix. There is a linear metallic density structure present within the cecum measuring approximately 2 cm in length on image 217 series 3. Small fat filled umbilical hernia with opening of approximately 1.8 cm. Mixed density extraperitoneal structure posterior to the left lower rectus sheath is noted on image 22 series 3 measuring 4.4 x 7.9 x 7.6 cm. This contains hyperdense central foci. No acute fracture. Grade 1 anterolisthesis L4 on L5, likely secondary to chronic facet arthrosis. IMPRESSION: 1. Acute sigmoid diverticulitis which contained microperforation. Air and fluid is noted within the sigmoid mesocolon with phlegmon/small developing abscess. No drainable collections are present at this time. 2. No bowel obstruction. 3. Indeterminate lobular extraperitoneal 7.9 cm structure/lesion posterior to the left lower rectus sheath demonstrates several foci of mixed attenuation which may represent soft tissue components, and/or active extravasation. Differential considerations include a complex venolymphatic malformation among other etiologies with a primary hemorrhage considered less likely. Follow-up recommended. 4. Equivocal findings of mild acute pancreatitis. Correlate with serum lipase. 5. 2.2 cm linear metallic density structure within the cecum suggestive of an ingested foreign body. ACT 112: Negative or not required by law. The above report was generated using voice recognition software. It may contain grammatical, syntax or spelling errors. Electronically signed by: Florencio Figueredo M.D. 04/28/2025 10:12 AM Ordered Studies 04/28/25 08:38 CT abd pelvis IV con only Stat Hospital Course (1) Diverticulitis of intestine with perforation: (2) Atrial fibrillation: (3) Hypertension: (4) Hyperlipidemia: (5) GERD (gastroesophageal reflux disease): Plan 74 year old male with PMH significant for A fib on warfarin, hypertension, hyperlipidemia, and GERD who presented to the ED on 04/28/2025 with abdominal pain who is admitted for diverticulitis with microperforation. Diverticulitis with microperforation Patient presented with periumbilical abdominal pain x2 days --CT abdomen revealed acute sigmoid diverticulitis with microperforation; air and fluid noted within sigmoid mesocolon with plegmon/small developing abscess that is not drainable; no bowel obstruction No leukocytosis, afebrile, vitals stable - no concern for sepsis at this time --Tolerated liquid diet --Continue IV Zosyn>> transition to Augmentin to complete 2-week course Appreciate surgery input: Okay to discharge on oral antibiotics if tolerates diet Advised patient to follow-up with his colorectal surgeon in [place] as soon as possible Received IV fluids Abnormal CT findings -Indeterminate lobular extraperitoneal 7.9 cm structure/lesion posterior to the left lower rectus sheath demonstrates several foci of mixed attenuation which may represent soft tissue components, and/or active extravasation. Differential considerations include a complex venolymphatic malformation among other etiologies with a primary hemorrhage considered less likely. Follow-up recommended. --Surgery recommended transfer to tertiary center but patient refused; patient will follow up on this outpatient when he returns home to [place] -2.2 cm linear metallic density structure within the cecum suggestive of an ingested foreign body. --Patient believes he has metal clips from previous colonoscopies -- Patient is advised to follow-up with his colorectal surgeon on discharge. He understands and agrees with the plan XIMENA Baseline creat 1.28-1.30 per patient Creat 1.4>1.2 Received IV fluids Avoid nephrotoxic meds Monitor renal function A fib Sinus bradycardia Continue flecainide INR therapeutic On Coumadin for anticoagulation Bradycardia likely secondary to flecainide Asymptomatic May need follow-up with his hotel breakfast attendant on discharge Hypertension Continue lisinopril Blood pressure stable Hyperlipidemia Continue rosuvastatin GERD Continue famotidine PRN DVT Px: SCDs, INR therapeutic Code Status: Full Code PCP: Francisco Kapadia of [place] Disposition: Home Total Time Total Time Spent Total Time Spent (In Minutes): 54 minutes Discharge Plan Discharge Items Patient Disposition: Home - Self-Care Reason For Visit: ABDOMINAL PAIN Discharge Diagnosis: Diverticulitis with microperforation Abnormal CT abdomen Acute kidney injury Sinus bradycardia Condition on Discharge: Fair Activity: Per Instructions section Exercise/Sports: Wait until after follow-up appointment Non-emergency contact: Primary Care Provider, Surgeon and Infection Prevention Practitioner Call non-emergency contact if: you have any medication questions, your symptoms worsen, your pain is concerning for you and you have a fever Follow-up/Referrals: PCP,NO [Primary Care Provider] - Diet: Low Fiber Addtl Attending Provider Instructions: --Follow-up with your primary care physician in 1 week --Follow-up with your colorectal surgeon as recommended --Consider following with your hotel breakfast attendant as you are noted to have low heart rate while you are hospitalized. Low heart rate likely secondary to flecainide use. Discussed with your hotel breakfast attendant for further recommendations. -- Complete the antibiotic course Augmentin as prescribed --You were noted to have abnormal CT abdomen suggestive of extraperitoneal structure/lesion in the left lower rectus sheath. You are also noted to have a linear metallic density structure within the cecum. Discussed with your colorectal surgeon for further recommendations. Seek immediate medical attention if your symptoms reoccur or worsen Please review medication list provided on discharge for any medication changes as instructed. Please call if you have any questions or problems. You can reach a [facility] hospitalist on duty at [facility] 24 hours a day by calling [phone] Pending Studies at Discharge: No Stand-Alone Forms: My [facility], Smoking Cessation Medications and DC Order Prescriptions: New Advanced Probiotic 625 mg (10 billion cell) Capsule 1 cap PO DAILY Qty: 15 0RF amoxicillin-pot clavulanate 875-125 mg tablet 1 tab PO BID Qty: 26 0RF oxycodone-acetaminophen [Percocet] 5-325 mg tablet 1 tab PO BID PRN (Reason: pain) Qty: 6 0RF Continued aspirin 81 mg Tablet,Delayed Release (Dr/Ec) 81 mg PO DAILY famotidine 20 mg Tablet 20 mg PO DAILY PRN (Reason: reflux) warfarin 5 mg tablet See Rx Instructions .ROUTE .COMPLEX Rx Instructions: Take 2.5mg on Mon/Fri and 5mg all other days flecainide 50 mg tablet 50 mg PO BID nitroglycerin 0.4 mg tablet, sublingual 0.4 mg sublingual DIRECTED PRN (Reason: Chest Pain) Rx Instructions: PLACE 1 TABLET UNDER TONGUE NEEDED FOR CHEST PAIN; MAY REPEAT EVERY 5 MINUTES FOR A TOTAL OF 3 DOSES IF NOT RESOLVED; CALL 911 lisinopril 5 mg tablet 5 mg PO DAILY rosuvastatin 40 mg tablet 40 mg PO HS Advil PM 200-38 mg Tablet 2 cap PO HS PRN (Reason: Sleep/Pain) Held Metamucil 3.4 gram/5.4 gram Powder 1 tbsp PO DAILY Hold Instructions: Hold taking Metamucil until further recommendations from your colorectal surgeon. Rx Instructions: mix into at least 8 oz of water or juice before administering Discharge Orders: Discharge Order (Routine); Ordered 04/29/25 Ordered By: Juanjose Hernandez Admission Data Admit Date/Time: 04/28/25 14:08 Attending Provider: Juanjose Hernandez Admit Provider: Clara Avila Primary Care Provider: PCP,NO Other Providers: Albert Coffey; Clara Avila
--- NOTE | 2025-04-29 13:51 | Communication Note ---
Date of Service: April 29, 2025 By CMS guidelines, a determination that the admission or continued stay is not medically necessary has been made by a member of the Utilization Review comm ittee and a physician for this hospital stay. Therefore, a Code 44 will be completed and the inpatient admission will be changed to outpatient.
[2025-04-29 14:42] VITALS: PULSE 46
[2025-04-30] MEDS ORDERED: ADVANCED PROBIOTIC 625 MG CAPSULE PO SCH (09:00)
== END 2025-04-29 14:44 | disposition home or self-care (01) | DRG 392 ==
LOC: ED 08:25 → 2N 14:08 → SUATTDRO 14:08 → INTOOBSV 14:08 → 2N 14:39